=== PATIENT | female | born 1985 | race Caucasian/White ===

== ENCOUNTER 2023-07-13 10:47 | Emergency (ER) | payer BC ==
[~2023-07-13] VITALS: Ht 160 cm; Wt 56.7 kg
[2023-07-13 10:57] VITALS: BP 127/88; PULSE 84; RESP 18; TEMP 97.3; O2SAT 99
== END 2023-07-13 12:21 | disposition left against medical advice (07) ==
LOC: MED 10:47
DX: T17.1XXA Foreign body in nostril, initial encounter (principal); Z53.21 Procedure and treatment not carried out due to patient leaving prior to being seen by health care provider; X58.XXXA Exposure to other specified factors, initial encounter; Y92.89 Other specified places as the place of occurrence of the external cause; Y93.89 Activity, other specified; Y99.8 Other external cause status